=== PATIENT | male | born 1955 | race Caucasian/White ===

== ENCOUNTER 2017-03-17 20:25 | Inpatient (IN) | payer MEDICARE, OTHER ==
[~2017-03-17] VITALS: Ht 172.7 cm; Wt 69.4 kg
[2017-03-17 20:45] VITALS: BP 123/79
[2017-03-17] MEDS ORDERED: MAGNESIUM HYDROXIDE 30 ML UDC PO PRN (22:00)
[2017-03-17] MEDS ORDERED: ACETAMINOPHEN 325 MG TABLET PO PRN (22:00)
[2017-03-17] MEDS ORDERED: MAG HYDROX/AL HYDROX/SIMETH 30 ML UDC PO PRN (22:00)
--- NOTE | 2017-03-17 22:36 | NUR ---
GPS RN ADMITTED NOTES ADMITTED THIS 62Y/O MALE FROM [facility] ,PT INITIALLY CAME FROM HOME , PT. CAME TO THE UNIT VIA GURNEY ACCOMPANIED EMT STAFF PT. IS ON 5150 HOLD, PER HOLD PT. WORSENING DEPRESSION ,INSOMNIA ,, AGITAED SUCIDIAL , HOPLESSEENESS AND 9 POUNDS LOSS IN 2 WEEKS ,UPON FACE TO FACE ASSESSMENT PT. A/O X3 ANXIOUS DEPRESSIVE ,FEARFUL BX NOTED AND DENIES SI AT THIS TIME , MENTAL HX OF BIPOLAR DISORDERED, DEPRESSION ANXIETY AND MEDICAL HX OF CHRONIC BACK PAIN ARTHRITIS ,MIGRAIN , NO ACUTE DISTRESS NOTED , DENIES ANY PAIN DISCOMFORT AT THIS TIME , MRSA SCREENING DONE ,BOTH MD AWARE OF NEW ADMISSION NEW ORDERS RECEIVED AND CARRIED OUT, REORIENT TO UNIT POLICES AND CONTRABAND CHECKS , ENCOURAGED PT TO VERBALIZE ANY FEELING OR CONCERN TO STAFF ,WILL CONTINUE TO MONITOR FOR SAFETY AND BEHAVIOR
[2017-03-17 23:24] VITALS: BP 123/79
[2017-03-18] MEDS ORDERED: TEMAZEPAM 7.5 MG CAPSULE ONE (00:58)
[2017-03-18] MEDS: TEMAZEPAM 7.5 MG CAPSULE PO PRN ×2 (01:03→21:43)
[2017-03-18] MEDS ORDERED: METO-302 (03:13)
[2017-03-18] MEDS ORDERED: HYDR-3658 (03:13)
[2017-03-18] MEDS ORDERED: IBUP-1481 PO ×2 (03:20→06:51)
--- NOTE | 2017-03-18 06:22 | NUR ---
RN GPS NOTES PATIENT RESTING HIS BED, NO ACUTE DISTRESS NOTED ,NO CHANGES IN STATUS. ALL NEEDS ATTENDED ANTICIPATED . DENIES SI/HI AT THIS TIME ,WILL ENDORSE TO NEXT SHIFT FOR CONTINUITY CARE
[2017-03-18] MEDS ORDERED: METO-302 PO (06:51)
[2017-03-18] MEDS ORDERED: HYDR-3658 PO (06:51)
[2017-03-18 07:50] LABS: BASOPHILS % (AUTO) 0.3 % (0.0-2.0); EOSINOPHILS # (AUTO) 0.3 /CMM (0.0-0.7); EOSINOPHILS % (AUTO) 2.7 % (0.0-6.0); HEMATOCRIT 48 % (39-51); HEMOGLOBIN 16.1 g/dL (13.5-17.5); LYMPHOCYTES # (AUTO) 1.6 /CMM (0.8-4.8); LYMPHOCYTES % (AUTO) 14.6 % (20.0-44.0); MEAN CORPUSCULAR HEMOGLOBIN 33 PG (26.0-33.0); MEAN CORPUSCULAR HGB CONC 33 g/dl (31.0-36.0); MEAN CORPUSCULAR VOLUME 98 fL (80-96); MONOCYTES # (AUTO) 0.6 /CMM (0.1-1.30); MONOCYTES % (AUTO) 5.9 % (2.0-12.0); NEUTROPHILS # (AUTO) 8.4 /CMM (1.8-8.9); NEUTROPHILS % (AUTO) 76.5 % (43.0-81.0); PLATELET COUNT (AUTO) 230 /CMM (150-450); RDW COEFFICIENT OF VARIATION 13.6 (11.5-15.0); RED BLOOD CELL COUNT(AUTO) 4.91 MIL/uL (4.5-6.0); WHITE BLOOD COUNT (AUTO) 10.9 K/uL (4.3-11.0)
[2017-03-18 07:57] LABS: ALBUMIN 3.6 g/dL (3.4-5.0); BILIRUBIN,TOTAL 0.9 mg/dL (0.2-1.0); CALCIUM, SERUM 8.5 mg/dL (8.5-10.1); CREATININE 0.9 mg/dL (0.6-1.3); POTASSIUM 4.1 mmol/L (3.5-5.1); TOTAL PROTEIN, SERUM 6.8 g/dL (6.4-8.2)
[2017-03-18 08:11] VITALS: BP 113/74
[2017-03-18] MEDS: LORAZEPAM 0.5 MG TABLET PO PRN ×2 (10:02→16:39)
--- NOTE | 2017-03-18 10:02 | NUR ---
QUIRK SANDER-NOTES PATIENT REQUESTING ATIVAN.STATED" I NEED ATIVAN FOR MY ANXIETY". ATIVAN 0.5MG P.O GIVEN PRN ORDERED.WILL CONT. MONITORING FOR SAFETY.
--- NOTE | 2017-03-18 11:00 | NUR ---
TRIAL COURT JUDGE-NOTES PATIENT LAYING IN HIS BED CALM, INTERMITTENTLY SLEEPING.NO ACUTE DISTRESS NOTED.
[2017-03-18 16:13] VITALS: BP 124/75
--- NOTE | 2017-03-18 16:41 | NUR ---
TRACK ANNOUNCER-NOTES PATIENT REQUESTING ATIVAN FOR ANXIETY. ATIVAN 0.5MG P.O GIVEN PRN ORDERED.WILL CONT. MONITORING FOR SAFETY.
--- NOTE | 2017-03-18 18:26 | NUR ---
ARCHAEOLOGIST-NOTES PATIENT LAYING IN HIS BED INTERMITTENTLY SLEEPING,NO ACUTE DISTRESS NOTED.WILL ENDORSE TO PHYSICIAN PRACTICE ADMINISTRATOR FOR CONTINUITY OF CARE.
[2017-03-18 20:00] VITALS: BP 112/75
[2017-03-18] MEDS: METOPROLOL SUCCINATE 25 MG TAB.SR.24H PO SCH (21:43)
[2017-03-18] MEDS ORDERED: MIRTAZAPINE 15 MG TABLET ONE (21:48)
[2017-03-18] MEDS: MIRTAZAPINE 15 MG TABLET PO SCH (21:50)
[2017-03-18] MEDS ORDERED: QUETIAPINE FUMARATE 25 MG TABLET ONE (21:50)
[2017-03-18] MEDS ORDERED: QUETIAPINE FUMARATE 25 MG TABLET PO SCH (22:00)
[2017-03-19 08:00] VITALS: BP 123/88
[2017-03-19] MEDS: LORAZEPAM 0.5 MG TABLET PO PRN ×2 (09:24→15:31)
--- NOTE | 2017-03-19 09:24 | NUR ---
[id number]: GAVE ATIVAN 0.5 MG PO DUE TO SEVERE ANXIETY UPON PT REQUEST AND WILL CONTINUE TO MONITOR FOR EFFECTIVENESS OF MEDICATION.
[2017-03-19] MEDS: IBUPROFEN 400 MG TABLET PO PRN ×2 (11:04→21:51)
--- NOTE | 2017-03-19 11:04 | NUR ---
[id number]: GAVE MOTRIN 400 MG PO DUE TO GENERALIZED PAIN 12/24 AND WILL CONTINUE TO MONITOR FOR EFFECTIVENESS OF MEDICATION
[2017-03-19] MEDS: NICOTINE PATCH (21MG) 21 MG PATCH.TD24 TD SCH (12:24)
[2017-03-19 16:00] VITALS: BP 117/74
[2017-03-19 19:57] VITALS: BP 129/82
[2017-03-19] MEDS: QUETIAPINE FUMARATE 100 MG TABLET PO SCH (20:55)
[2017-03-19] MEDS: MIRTAZAPINE 15 MG TABLET PO SCH (20:55)
[2017-03-19] MEDS: METOPROLOL SUCCINATE 25 MG TAB.SR.24H PO SCH (20:56)
[2017-03-20] MEDS: TEMAZEPAM 7.5 MG CAPSULE PO PRN ×2 (00:18→22:54)
[2017-03-20 08:00] VITALS: BP 125/91
[2017-03-20] MEDS: NICOTINE PATCH (21MG) 21 MG PATCH.TD24 TD SCH (08:55)
[2017-03-20] MEDS: LORAZEPAM 0.5 MG TABLET PO PRN ×2 (09:07→19:08)
--- NOTE | 2017-03-20 09:07 | NUR ---
[id number]: GAVE ATIVAN 0.5 MG PO DUE TO SEVERE ANXIETY UPON PT REQUEST AND WILL CONTINUE TO MONITOR FOR EFFECTIVENESS OF MEDICATION
[2017-03-20] MEDS: IBUPROFEN 400 MG TABLET PO PRN (13:35)
--- NOTE | 2017-03-20 13:35 | NUR ---
[id number]: GAVE MOTRIN 400 MG PO DUE TO GENERALIZED / UPON PT REQUEST AND WILL CONTINUE TO MONITOR FOR EFFECTIVENESS OF MEDICATION.
--- NOTE | 2017-03-20 14:30 | NUR ---
Initial discharge plan: Pt. lives alone [id number] [facility] [address] and wants to return when discharged. BRITTANI will follow up with Addy Goodman [phone], Lucero [phone], Lisa [phone] . BRITTANI will also follow up with and will help form safe and proper discharge.
--- NOTE | 2017-03-20 14:51 | NUR ---
MS RN NOTES RECEIVED PT. FROM GPS NURSE IN STABLE CONDITION. PT. IS A/O X4. NO SOB OR SIGNS OF DISTRESS NOTED. PT DENIES ANY PAIN AT THIS TIME. PT. DENIES ANY SUICIDAL IDEATION OR ANY PLANS TO HARM HIMSELF. PT. WAS PLACE ON A 5250 OF TODAY. WILL CONTINUE TO MONITOR AND DESTINEE
--- NOTE | 2017-03-20 18:58 | NUR ---
MS RN NOTES PT REMAINS IN STABLE CONDITION. ALL NEEDS WERE MET DURING SHIFT AND ORDERS CARRIED OUT ACCORDINGLY. ALL SAFETY MEASURES REMAIN IN PLACE. SITTER REMAINS AT BEDSIDE. WILL ENDORSE TO NIGHTSHIFT NURSE FOR DESTINEE
--- NOTE | 2017-03-20 19:35 | NUR ---
GPS OVERFLOW RN NOTE RECEIVED PATIENT FROM DAY SHIFT, PATIENT IS ALERT AND ORIENTEDX4, AMBULATORY, NO S/S OF RESPIRATORY DISTRESS OR PAIN. 5250 ON HOLD, 1:1 SITTER AT BEDSIDE FOR BEHAVIOR OBSERVATION. SRX2, BED IN LOW POSITION, CALL LIGHT WITHIN REACH, WILL CONTINUE TO MONITOR PATIENT.
[2017-03-20 20:00] VITALS: BP 138/79
[2017-03-20] MEDS: METOPROLOL SUCCINATE 25 MG TAB.SR.24H PO SCH (21:30)
[2017-03-20] MEDS: MIRTAZAPINE 15 MG TABLET PO SCH (21:30)
[2017-03-20] MEDS: QUETIAPINE FUMARATE 100 MG TABLET PO SCH (21:30)
--- NOTE | 2017-03-21 06:55 | NUR ---
GPS RN NOTE PATIENT IS RESTING IN BED COMFORTABLY, NO ACUTE DISTRESS NOTED THROUGHOUT THE SHIFT. WILL ENDORSE TO DAY SHIFT NURSE FOR DESTINEE.
--- NOTE | 2017-03-21 07:30 | NUR ---
AM RN NOTE Received patient awake, A/O X4 verbally responsive. Denies any pain or discomfort at this time. On 5250 hold. Continue on 1:1 sitter at bedside. No behavioral outbursts note. Will continue to monitor.
[2017-03-21 08:00] VITALS: BP 121/83
[2017-03-21] MEDS: NICOTINE PATCH (21MG) 21 MG PATCH.TD24 TD SCH (08:20)
[2017-03-21] MEDS: LORAZEPAM 0.5 MG TABLET PO PRN ×2 (09:20→15:35)
[2017-03-21] MEDS: IBUPROFEN 400 MG TABLET PO PRN (12:16)
--- NOTE | 2017-03-21 12:16 | NUR ---
UR update: BRITTANI faxed h&Ps, med list, facesheet, [phone], and updated clinicals to Nichole from [facility] [phone], . Tracking # [id number]
--- NOTE | 2017-03-21 13:16 | NUR ---
AM RN NOTE Re-assessed for back pain 0/10.
[2017-03-21 16:00] VITALS: BP 125/80
--- NOTE | 2017-03-21 18:29 | NUR ---
AM RN NOTE Patient resting in his bed, seen and assessed by (Psychiatrist). No behavioral outbursts noted. 1:1 sitter at bedside. Will continue to monitor and endorse care to next shift.
--- NOTE | 2017-03-21 19:10 | NUR ---
RN NOTES RECEIVED PT AWAKE, HOB ELEVATED, NO SOB, NOT IN DISTRESS, ON ROOM AIR AND TOLERATED WELL. PT ALERT AND ORIENTED X4, PT IS CALM, QUIET AND COOPERATIVE, BEHAVIOR APPROPRIATE. PT IS ON 5250 HOLD WITH 1:1 SITTER AT BEDSIDE FOR SAFETY. DENIES ANY PAIN AND DISCOMFORT AT THIS TIME. KEPT COMFORTABLE AND ATTENDED. WILL CONTINUE TO MONITOR PT.
[2017-03-21] MEDS: MIRTAZAPINE 15 MG TABLET PO SCH (21:50)
[2017-03-21] MEDS: QUETIAPINE FUMARATE 100 MG TABLET PO SCH (21:50)
[2017-03-21] MEDS: METOPROLOL SUCCINATE 25 MG TAB.SR.24H PO SCH (21:54)
[2017-03-21] MEDS: TEMAZEPAM 7.5 MG CAPSULE PO PRN (23:06)
--- NOTE | 2017-03-21 23:06 | NUR ---
RN NOTES PT VERBALIZING DIFFICULTY IN SLEEPING, RESTORIL 7.5 MG TAB GIVEN PO AND TOLERATED WELL. WILL CONTINUE TO MONITOR PT.
[2017-03-22] MEDS: LORAZEPAM 0.5 MG TABLET PO PRN ×2 (06:02→15:52)
--- NOTE | 2017-03-22 06:02 | NUR ---
RN NOTES PT FEELS ANXIOUS AND ASKS FOR ATIVAN, ATIVAN 0.5 MG TAB GIVEN PO AND TOLERATED WELL.
--- NOTE | 2017-03-22 07:30 | NUR ---
RN NOTES PT ASLEEP IN BED, BREATHING REGULAR AND UNLABORED, NO SOB, NOT IN DISTRESS, ON ROOM AIR AND TOLERATED WELL. PT CALM, QUIET AND COOPERATIVE WITH CARE. DENIES SUICIDAL THOUGHTS . VITAL SIGNS STABLE, AFEBRILE. NO COMPLAIN OF PAIN. NO EPISODE OF NAUSEA NAD VOMITING. SITTER AT BEDSIDE FOR SAFETY. ENDORSED TO MORNING RN FOR CONTINUITY OF CARE.
--- NOTE | 2017-03-22 07:35 | NUR ---
GPS/RN OPENING NOTES PT. IS WITH 1:1 SITTER. RECEIVED PT. IN BED AWAKE, A&OX4. BREATHING ON ROOM AIR UNLABORED, AND NO SOB. NO S/S OF ACUTE DISTRESS. PT. DENIES HARMING HIMSELF. PT. VERBALIZED HAVING [employer]ZA[employer]AMS LAST NIGHT. BED IS IN LOWEST POSITION, 2 SIDE RAILS UP, AND INSTRUCTED PT. TO USE CALL LIGHT FOR ASSISTANCE.
[2017-03-22 08:00] VITALS: BP 119/79
[2017-03-22] MEDS: IBUPROFEN 400 MG TABLET PO PRN (09:04)
[2017-03-22] MEDS: NICOTINE PATCH (21MG) 21 MG PATCH.TD24 TD SCH (09:04)
--- NOTE | 2017-03-22 10:27 | NUR ---
RN NOTES CALLED DR. NEVAREZ AND LEFT MESSAGE ABOUT NEW DISCHARGE ORDERS.
--- NOTE | 2017-03-22 15:30 | NUR ---
GPS OVERFLOW/RN NOTES PT. SAID THAT HE HAD WANTED TO REPORT ADDITIONAL WEAPONS TO THE POLICE THAT HE DIDN'T WHEN THE POLICE WERE INTERVIEWING HIM. CALLED [facility] AND SPOKE WITH MACY ABOUT PT. WANTING TO REPORT ADDITIONAL WEAPONS HE DIDN'T REPORT TO THE POLICE. PER MACY RECOMMENDATION, PT. CAN CALL HIS FRIEND WHO WILL BE OPENING THE DOOR FOR THE POLICE AT HIS HOME AND CAN TALK TO THE POLICE AT THAT TIME TO REPORT ANY ADDITIONAL WEAPONS TO FIND. PT. WAS INFORMED THE CAN CALL HIS FRIEND THAT WILL BE OPENING THE DOOR FOR THE POLICE AND HE CAN TALK TO THE POLICE AT THAT TIME TO REPORT ANY ADDITIONAL WEAPONS TO FIND.
[2017-03-22 16:00] VITALS: BP 134/85
--- NOTE | 2017-03-22 16:49 | NUR ---
Discharge note: Pt. will discharge back home [facility] [id number] and wants to return when discharged. BRITTANI spoke with Evelyn Goodman [phone] and confirmed that pt. has firearms at home and she confirmed that he does. She agreed to work with us and remove them if need be. BRITTANI called [place] [employer] [address] [place] [address] and spoke with Ramakrishna who got all the information and agreed to follow up. BRITTANI received a call from Officer Godwin from [facility], informing the marriage and family social worker that a unit is being sent to the hospital. Officer Quirino (serial # [id number] and unit designation # [id number]) came with others to speak with the patient to get consent to enter the house for a search warrant. Pt. agreed and singed the form. Officer Quirino went to the patients home and with pt's friend, to confiscate pt's firearms. BRITTANI received a call from Officer Quirino notifying that the house is clear and pt. can discharge. BRITTANI notified Evelyn that the patient can return. Discharge paperwork has been singed and discharge instructions to be provided to the patient. Pt. will follow up with his psychiatrist, Herminio Ba [phone] on 03/27/17 at 3:15PM at [address] [address]. Pt. will discuss substance abuse with the psychiatrist. Pt. is a smoker, and was [facility] [address] Pt. was notified and agreed.
--- NOTE | 2017-03-22 19:45 | NUR ---
RN NOTES PT. WAS PROVIDED DISCHARGE INSTRUCTIONS, PT. VERBALIZED UNDERSTANDING, AND SIGNED DISCHARGE PACKET PAPERS. BELONGINGS LIST WAS CHECKED AND SIGNED BY PATIENT. PT. IS IN MEDICALLY STABLE CONDITION. PT. ID BAND WAS REMOVED AND CALLED FOR A TAXI. PT. WAS GIVEN PRESCRIPTION PAPER FOR HAVE FILLED AT A PHARMACY. PT.'S MEDICATION RECONCILIATION PAPER WORK WAS SIGNED.
--- NOTE | 2017-03-22 20:00 | NUR ---
ADULT LITERACY INSTRUCTOR PT. LEFT IN MEDICALLY STABLE CONDITION TO GO HOME BY TAXI. PT. HAD HIS DISCHARGE PACKET IN HAND. PT. STATED WHILE AWAITING TAXI OUT[facility]IDE [facility], PT. SAID THAT HE LIKED RIDING HIS MOTORCYCLE AROUND AND SAID HE COULD GO DOWN ON HIS MOTORCYCLE. PT. STATED WHEN HE TALKED TO THE POLICE ON THE PHONE HE TOLD THEM ABOUT HIS SWORDS, AND ARCHERY WHICH THEY DID NOT EVEN TAKE.
== END 2017-03-22 20:00 | DRG 885 ==
LOC: GPS 20:25 → GPSOV 03-20 15:07
PROVIDERS: ADMIT Psychiatry & Neurology Psychiatry; ATTEND Psychiatry & Neurology Psychiatry
DX: F33.2 Major depressive disorder, recurrent severe without psychotic features (principal); R45.851 Suicidal ideations; I10 Essential (primary) hypertension; F41.9 Anxiety disorder, unspecified; F12.10 Cannabis abuse, uncomplicated; F17.200 Nicotine dependence, unspecified, uncomplicated; Z79.899 Other long term (current) drug therapy; G47.00 Insomnia, unspecified
CPT/HCPCS: 36415; 80053-TC; 85025-TC; 87081-TC